=== PATIENT | male | born 1985 | race Caucasian/White ===

== ENCOUNTER 2024-03-08 16:32 | Outpatient (CLI) | payer OTHER ==
--- NOTE | 2024-03-08 19:35 | MRI Report ---
PROCEDURE: Lumbar Spine WO INDICATIONS: LUMBAR RADICULOPATHY TECHNIQUE: Noncontrast sagittal T1 spin echo and T2 fast echo, sagittal STIR, axial T1 and T2 fast spin echo thr ough the lumbar spine. In cases with scoliosis, additional coronal T2 fast spin echo may be performe d. COMPARISON: None. FINDINGS: Image quality: Excellent. Alignment and Curvature: Straightening of the normal lumbar lordosis. Bone Marrow: Marrow is of normal overall signal. No acute vertebral body compression fractures. Spinal Cord: Conus medullaris terminates at the L1 level. Visualized cord demonstrates normal signa l and size. Paraspinous Soft Tissues: No paravertebral masses. T12-L1: Normal in appearance. L1-L2: Normal in appearance. L2-L3: Disc desiccation and mild disc bulge. Facet arthropathy. No central canal or neural foramin al stenosis. L3-L4: Disc desiccation and mild posterior disc bulge. Facet arthropathy. No significant central ca nal or neural foraminal stenosis. L4-L5: Disc desiccation and mild disc bulge. Facet arthropathy. No central canal or neural foramina l stenosis. L5-S1: Normal in appearance. IMPRESSION: Mild degenerative changes without significant central canal or neural foraminal stenosis. Reviewed by: Juarez Barton MD on 03/08/2024 6:34 PM [facility] Approved by: Juarez Barton MD on 03/08/2024 6:34 PM [facility] Station ID: [id number]
== END 2024-03-08 16:33 | disposition home or self-care (01) ==
LOC: DI 16:32
PROVIDERS: ATTEND Nurse Practitioner Family
DX: M47.26 Other spondylosis with radiculopathy, lumbar region (principal)